=== PATIENT | male | born 1965 | race Two or more races ===

== ENCOUNTER 2018-09-10 12:30 | Emergency (ER) | payer SELFPAY ==
[~2018-09-10] VITALS: Ht 165.1 cm; Wt 81.8 kg
[2018-09-10 12:37] VITALS: Ht 165.1 cm; Wt 81.8 kg
[2018-09-10] MEDS ORDERED: DIABETES MEDICATION (12:40)
[2018-09-10 13:07] LABS: BASOPHILS 0.1 % (0-2); EOSINOPHILS 1.1 % (0-7); HEMATOCRIT 39.9 % (42.0-54.0); HEMOGLOBIN 14.1 g/dL (13.5-17.5); IMMATURE GRANULOCYTES 0.2 % (0-5); MCH 31.1 pg (26.0-34.0); MCHC 35.3 g/dL (31.0-37.0); MCV 88.1 fL (80.0-100.0); MONOCYTES 7.5 % (2-11); NEUTROPHILS 74.1 % (40-80); PLATELET COUNT 197 10x3/uL (130-400); RBC 4.53 10x6/uL (4.20-6.10); RDW 14.8 % (11.5-14.5); WBC 8.7 10x3/uL (4.8-10.8)
[2018-09-10 13:15] LABS: APTT 28.5 SECONDS (22.8-39.4); INR 1.04 (0.85-1.17); PROTIME 13.1 SECONDS (11.6-15.0)
[2018-09-10 13:20] LABS: ALBUMIN 3.1 g/dL (3.4-5.0); ANION GAP 9.4 mmol/L (8-16); BILIRUBIN - TOTAL 0.68 mg/dL (0.2-1.3); CALCIUM 8.7 mg/dL (8.5-10.1); CARBON DIOXIDE 29.2 mmol/L (21.0-32.0); CREATININE - SERUM 1.2 mg/dL (0.6-1.3); POTASSIUM - SERUM 3.6 mmol/L (3.5-5.1); PROTEIN - SERUM 7.3 g/dL (6.4-8.2)
[2018-09-10 13:24] LABS: TROPONIN-I 0.037 ng/mL (0.000-0.060)
[2018-09-10] MEDS ORDERED: GLUCOPHAGE500 MG PO (18:39)
[2018-09-10] MEDS ORDERED: ZESTORETIC 20-1 EACH PO (18:39)
[2018-09-10 19:19] VITALS: BP 187/99
== END 2018-09-10 19:21 | disposition home or self-care (01) ==
LOC: D.ER 12:30
PROVIDERS: Family Medicine
DX: I10 Essential (primary) hypertension (principal); E11.65 Type 2 diabetes mellitus with hyperglycemia; Z91.14 Patient's other noncompliance with medication regimen